=== PATIENT | female | born 1955 | race Caucasian/White ===

== ENCOUNTER 2019-03-12 06:39 | Day surgery (SDC) | payer OTHER ==
--- NOTE | 2019-03-04 10:49 | HP ---
Admitting History and Physical - Primary Care Physician PCP: Harmony Avendaño - Admission Chief Complaint: left breast atypia History of Present Illness: 63 year old postmenapausal female presents with screening mammogram showing calcifications 6mmin the superior lateral portion og left breast Birad 4. Stereotactic core biopsy revealed Atypical ductal hyperplasia01/14/2019. History Source: Patient Limitations to Obtaining History: No Limitations - Past Medical History Endocrine: Yes: Hypothyroidism - Past Surgical History Past Surgical History: Yes: Hysterectomy (TAHBSO prolapse uterus 2010), Tonsillectomy - Smoking History Smoking history: Never smoked Have you smoked in the past 12 months: No - Alcohol/Substance Use Hx Alcohol Use: Yes (social) Home Medications - Allergies Allergies/Adverse Reactions: Allergies Allergy/AdvReac Type Severity Reaction Status Date / Time No Known Allergies Allergy Unverified 08/06/15 11:19 - Home Medications Home Medications: Ambulatory Orders Cholecalciferol (Vitamin D3) [Vitamin D3] 2,000 unit PO AM tablet 04/21/16 Family Medical History Family Hx Cancer: Father (brain ca 48) Other Family History: mat uncle lung ca 52. mat cousin 59 breast ca. pat GM breast ca 80 Physical Examination Breast(s): Yes: Other (symmetrical no palapable masses or adenopathy bilaterally post bx changes left breast S/P core bx) Problem List - Problems (1) Atypical ductal hyperplasia of left breast Code(s): N60.92 - UNSPECIFIED BENIGN MAMMARY DYSPLASIA OF LEFT BREAST Assessment/Plan Left breast wide excision with mammogram needle localization
[2019-03-06 08:13] VITALS: BMI 25.4
[2019-03-12] MEDS ORDERED: BUPIVACAINE HCL 0.25% 125 MG/50 ML VIAL ONE (07:38)
[2019-03-12] MEDS ORDERED: LIDOCAINE HCL 1%, 10 MG/ML (20ML VIAL) ONE (07:38)
[2019-03-12] MEDS ORDERED: DEXAMETHASONE SOD PHOSPHATE 4 MG/1 ML VIAL ONE (08:31)
[2019-03-12] MEDS ORDERED: MIDAZOLAM HCL 2 MG/2 ML SINGLE DOSE VIAL ONE (08:31)
[2019-03-12] MEDS ORDERED: ONDANSETRON 4 MG/2 ML VIAL ONE ×2 (08:31→11:18)
[2019-03-12] MEDS ORDERED: PROPOFOL 20 ML ONE (08:31)
[2019-03-12] MEDS ORDERED: EPHEDRINE SULFATE/0.9% NACL/PF 50 MG/10 ML SYRINGE NR ONE (08:32)
[2019-03-12] MEDS ORDERED: SUCCINYLCHOLINE CHLORIDE 200 MG/10 ML SYRINGE ONE (08:32)
[2019-03-12] MEDS ORDERED: BUPIVACAINE HCL/PF 2.5 MG/ML - 30 ML VIAL IJ ONE (08:46)
[2019-03-12] MEDS ORDERED: LACTATED RINGERS SOLUTION 1,000 ML IV SCH (09:30)
[2019-03-12] MEDS ORDERED: BUPIVACAINE HCL/PF 0.25% (2.5MG/ML) 10 ML VIAL IJ ONE (10:15)
[2019-03-12] MEDS ORDERED: KETOROLAC TROMETHAMINE 30 MG/1 ML VIAL IVPUSH PRN (10:43)
[2019-03-12] MEDS ORDERED: DEXTROSE 5%-0.45% SALINE 1,000 ML IV SCH (10:45)
[2019-03-12] MEDS: ONDANSETRON 4 MG/2 ML VIAL IVPUSH PRN ×2 (11:23→11:27)
--- NOTE | 2019-03-12 11:24 | OP ---
DATE OF OPERATION: 03/12/2019 PREOPERATIVE DIAGNOSIS: Left breast atypical ductal hyperplasia. PROCEDURE: Left mammographically localized partial mastectomy. ANESTHESIA: General, intubated. ATTENDING SURGEON: Cleo Richards MD EXTRUSION FORMER: JUAN Valles ESTIMATED BLOOD LOSS: Minimal. COMPLICATIONS: None. DESCRIPTION OF PROCEDURE: Patient was made aware of the risks and benefits of the procedure and consented. She was placed in the supine position after going to the radiology suite where a needle and wire were placed next to the indexed lesion. After general anesthesia was induced, the patient was intubated. The operative site was prepped and draped in the usual sterile fashion. A curvilinear periareolar incision was then made using electrocautery. Tissues were dissected down to the wire and needle. Tissues around the needle and wire were then sharply excised and submitted with a short suture superior, long suture lateral. Specimen radiograph confirmed the presence of the indexed lesion. Palpation of the wound revealed no other abnormalities. The specimen was then submitted to Pathology for permanent sectioning. The wound was copiously irrigated with normal saline. Hemostasis maintained by electrocautery. The wound was then closed with a deep 3-0 Vicryl followed by a running subcuticular 4-0 Monocryl. Steri-Strips, sterile dressing, and compression bra were then applied, and the patient, having tolerated the procedure well, was transferred to the recovery room in excellent condition. CLEO MARIA M.D. [id number]
[2019-03-12] MEDS ORDERED: FAMOTIDINE 20 MG/50 ML IVPB 20 MG/50 ML MG IVPB ONE (12:01)
[2019-03-12] MEDS ORDERED: FAMOTIDINE 20 MG PREMIXED IVPB IVPB ONE (12:03)
[2019-03-12 12:47] VITALS: TEMP 97.8
[2019-03-12 14:19] VITALS: PULSE 62
[2019-03-12 15:29] VITALS: BP 108/72
--- NOTE | 2019-03-15 09:30 | PATH ---
Surgical Pathology Report Patient Name: JOSH YI Med. Rec. #: [id number] /Age/Gender: 1955 (Age: 63) / F Account: [id number] Location: [facility] Taken: 03/12/2019 Received: 03/12/2019 Reported: 03/15/2019 Physicians: Harmony Avendaño M.D. Specimen(s) Received LEFT BREAST WIDE EXCISION Clinical History ADH Final Diagnosis LEFT BREAST, WIDE EXCISION: BREAST TISSUE WITH FOCAL FLAT EPITHELIAL ATYPIA (FEA) ARISING IN A BACKGROUND OF COLUMNAR CELL CHANGE, CYSTIC PAPILLARY APOCRINE METAPLASIA, MICROCYSTS, STROMAL FIBROSIS, AND ASSOCIATED CALCIFICATIONS. REACTIVE CHANGES AT PRIOR BIOPSY SITE PRESENT. Electronically Signed Jerri Ward M.D. Gross Description Received in formalin, labeled "left breast wide excision," is a 3.3 x 2.8 x 2.1 cm. hill-yellow, irregular, portion of fibroadipose tissue. There is no needle localization wire present. There is a short suture marking the superior aspect and a long suture marking the lateral aspect, per the surgeon. There is no skin or nipple present. The specimen is inked as follows: superior and lateral blue; inferior green; medial yellow; anterior red; deep black. The specimen is serially sectioned from medial to lateral. Sectioning reveals a 1.4 x 0.6 x 0.6 cm focus of firm fibrous tissue with hemorrhage, consistent with a previous biopsy site. No definitive mass is identified. The specimen is entirely and sequentially submitted in 6 cassettes with the medial margin cassette 1 and lateral margin cassette 6 (previous biopsy site in cassettes 2-4). Time to formalin fixation: 7 minutes Total formalin fixation time: Approximately 32 hours. 03/13/2019 [facility]03/13/2019
== END 2019-03-12 14:30 | disposition home or self-care (01) ==
LOC: FASU 06:39
PROVIDERS: ATTEND Surgery Surgical Oncology
PROC: 0HBU0ZZ Excision of Left Breast, Open Approach (ICD-10-PCS; principal; 2019-03-12 09:58)
DX: N60.12 Diffuse cystic mastopathy of left breast (principal); N60.32 Fibrosclerosis of left breast; N64.89 Other specified disorders of breast; N60.92 Unspecified benign mammary dysplasia of left breast; Z90.710 Acquired absence of both cervix and uterus; E03.9 Hypothyroidism, unspecified
CPT/HCPCS: 19281; 88307-TC; 94760